=== PATIENT | female | born 1960 | race Caucasian/White ===

== ENCOUNTER 2019-02-03 08:28 | Emergency (ER) | payer OTHER, SELFPAY ==
[2019-02-03 08:29] VITALS: BP 143/87; PULSE 76; RESP 18; TEMP 36.6; O2SAT 99; BMI 23.9
--- NOTE | 2019-02-03 09:26 | ED.VIS.GEN ---
History of Present Illness Chief Complaint: Dizziness Informant: Patient Onset: Today Context: Sudden Onset Timing: Intermittent Quality: Spinning and lightheadedness Location: Getting out of bed this morning Current Severity: Nauseousness Maximum Severity: Moderate Worsened by: Change in position and presumably worse turning to the right Relieved by: Losing eyes and remaining still Associated Symptoms: Vomiting after she drank fluids Narrative: She is a middle-aged woman with no sniffing past medical history who presents with abrupt onset of vertigo. This occurred when she rolled out of bed. She rolled to the left. She states everything was spinning. She denied nausea or vomiting. She woke to the kitchen. Had water and promptly vomited. She believes that symptoms are worse when she turns to the left versus the right. She presently has no's symptoms other than feeling nauseous. She denies double vision, blurred vision or loss of vision. Denies ringing or ears or decreased hearing. Denies trouble with speech or swallowing. She denies paresthesia, anesthesia motors. She denies cardiac respiratory symptoms. She has no other complaints. Prior similar symptoms: No Recent Illness/Hospitalization: No - Past Medical History (1) No significant past medical history Status: Acute Past Medical History - Allergies and Home Meds Allergies/Adverse Reactions: Allergies No Known Allergies Allergy (Verified 02/03/19 08:30) Primary Care Physician: Dagoberto Menjivar DO [Primary Care Provider] - Past Medical History: None Surgical History: no surgical history Lives: Spouse/ Significant Other Smoking Status: Never smoker Alcohol: None Drugs: None Review of Systems General: Denies: Chills, Fever, Sweats Eyes: Denies: Visual changes - bilaterally, Blurred Vision - bilaterally, Diplopia ENT: Denies: Rhinorrhea, Sore throat Cardiovascular: Denies: Chest pain, Palpitations Respiratory: Denies: Dyspnea, Cough, Dyspnea on exertion Gastrointestinal: Reports: Vomiting. Denies: Abdominal pain, Nausea, Diarrhea, Constipation, Melena, Hematochezia, -, - Genitourinary: Denies: Dysuria, Hematuria, Frequency Musculoskeletal: Denies: Myalgias, Arthralgias, Neck pain, Back pain, Swelling, Extremity Pain, -, - Neurological: Denies: Headache, Weakness, Numbness Physical Exam Vital Signs/Narrative: Vital Signs Temp Pulse Resp BP Pulse Ox 02/03/19 08:29 97.9 F 76 18 143/87 H 99 Inital Vital Signs reviewed: Yes General: Well nourished, Well developed, No Acute Distress Head: Normocephalic, Atraumatic Eyes: Perrl, EOMI ENT: Moist mucous membranes, No rhinorrhea, TM's clear Neck: Supple, Nontender, No lymphadenopathy, No JVD Cardiovascular: Regular rate, Regular rhythm, No murmurs, Normal S1, Normal S2 Respiratory: No distress, CTA bilaterally, Chest nontender Abdomen: Soft, Nontender, Nondistended, Normal bowel sounds Back: Nontender, Normal Inspection Extremities: Nontender, No edema Skin: Normal color, No rash Neurological: Alert, Oriented x3, Cranial nerves II-XII grossly intact, Normal Strength, Normal Sensation, Normal DTR, Normal Gait - Able to walk on heels and toes. Patient had no difficulty with tandem gait., - - Cerebellar testing was normal. When patient turns to the right she became symptomatic. Of note when she sat up from supine position and shuffled to the right she had symptoms. Nystagmus was noted. [place]-Hallpike maneuver was performed and was negative. The eye askew test and the hint test was negative. Psychological: Normal affect, Normal Mood Diagnostic/Tx/Re-eval - Medical Decision Making Based on patient's history paroxysmal symptoms that occur with change position suspect patient has benign positional vertigo. Since symptoms were worse per her recollection to the left [place] maneuver was performed. She had recurrence of symptoms with nystagmus noted that fatigue. Total time to perform [place] maneuver 17 minutes. Plan is to ambulate in 10 to 15 minutes. If able to ambulate without difficulty or recurrence of symptoms she will be discharged to home with appropriate home-going instructions. She was ambulated and passed without recurrence of symptoms. Plan is to discharge to home. Procedures Procedure(s): [place] maneuver for paroxysmal benign positional vertigo. Total time 17 minutes ED Disposition - Plan for ED Patient: Disposition: Home or Assisted Living Diagnosis: Benign paroxysmal positional vertigo Instructions: Benign Positional Vertigo Referrals: Dagoberto Menjivar DO [Primary Care Provider] - As Needed
[2019-02-03 09:48] VITALS: BP 134/77; PULSE 62; RESP 15; O2SAT 98
== END 2019-02-03 09:52 | disposition home or self-care (01) ==
PROVIDERS: Emergency Provider Emergency Medicine; Family Provider Student in an Organized Health Care Education/Training Program; PCP Student in an Organized Health Care Education/Training Program
DX: H81.10 Benign paroxysmal vertigo, unspecified ear (principal)
CPT/HCPCS: 99282

== ENCOUNTER → 2022-09-10 | Outpatient (CLI) | payer OTHER, SELFPAY | END | disposition home or self-care (01) | PROVIDERS: PCP Student in an Organized Health Care Education/Training Program; Referring Provider Nurse Practitioner; Visit Provider Nurse Practitioner | DX: N30.90 Cystitis, unspecified without hematuria (principal); R35.0 Frequency of micturition | CPT/HCPCS: 87077; 87086; 87088; 87186 ==

== ENCOUNTER → 2022-11-30 | Outpatient (CLI) | payer OTHER, SELFPAY | END | disposition home or self-care (01) | PROVIDERS: PCP Student in an Organized Health Care Education/Training Program; Visit Provider Nurse Practitioner | DX: R35.0 Frequency of micturition (principal); N30.90 Cystitis, unspecified without hematuria | CPT/HCPCS: 87086; 87088 ==